=== PATIENT | male | born 1990 | race Caucasian/White ===

== ENCOUNTER 2022-09-20 12:31 | Emergency (ER) | payer MEDICAID ==
[2022-09-20] MEDS ORDERED: Ketorolac 30 MG/ML SDV IVPUSH ONE (13:22)
[2022-09-20] MEDS ORDERED: Sodium Chloride 0.9% 10 ML Syringe FLUSH PRN (13:29)
== END 2022-09-20 17:17 | disposition home or self-care (01) ==
LOC: JP.ED 12:31
DX: N50.89 Other specified disorders of the male genital organs (principal)
CPT/HCPCS: 76870; 93976; 96374; 99284; J1885; J3490; 99283